=== PATIENT | female | born 1940 ===

== ENCOUNTER 2024-11-02 08:30 | Day surgery (SDC) | payer OTHER ==
[~2024-11-02] VITALS: Ht 158 cm; Wt 65.0 kg
[2024-11-02] MEDS ORDERED: Lactated Ringer's 1,000 ML IV SCH (09:40)
[2024-11-02] MEDS ORDERED: ESCI20 PO (09:45)
[2024-11-02] MEDS ORDERED: DILTIAZEM 24HR120 M4 PO (09:45)
[2024-11-02] MEDS ORDERED: TEMAZEPAM1511 PO (09:45)
[2024-11-02] MEDS ORDERED: Aspir 8181 MG PO (09:46)
[2024-11-02 09:56] VITALS: BP 169/79
--- NOTE | 2024-11-02 10:03 | NUR ---
History, Chart, Medications and Allergies reviewed before start of procedure. Pre-Op teaching done. Pt verbalizes understanding. Patient confirms NPO status and agrees with scheduled surgery. Patient States Post-Procedure ride home has been arranged.
[2024-11-02] MEDS ORDERED: propofoL 20 ML IV ONE (10:55)
--- NOTE | 2024-11-02 11:15 | NUR ---
11/02/24 1115 Bettie Gunderson INTO ENDO 1 @1106- History, Chart, Medications and Allergies reviewed before start of procedure.MONITOR INTACT WITH CONTINUOUS PULSE OXIMETRY, CONTINUOUS END TITAL CO2, 3-LEAD EKG AND INTERMITTENT BLOOD PRESSURE.3-LEAD EKG REVIEWED WITH PHYSICIAN PRIOR TO START OF PROCEDURE.O2 VIA POM INTACT THROUGHOUT SEDATION/PROCEDURE.Bite Block Placed.ERIC RAMSAY PROVIDING MAC-SEE ANESTHESIA RECORD.
[2024-11-02 11:25] VITALS: BP 153/79
--- NOTE | 2024-11-02 11:27 | NUR ---
REPORT RECEIVED FROM MICHAELLE MAURER AND ERIC JIMENEZ. VSS. PT ON RA. PT A&OX4. PT ABLE TO REPOSITION SELF IN BED. PT REQUESTING PO FLUIDS AND TOLERATING THEM WELL. PT DENIES PAIN, NAUSEA OR OTHER DISCOMFORTS.
[2024-11-02 11:40] VITALS: BP 178/90
--- NOTE | 2024-11-02 11:49 | NUR ---
Patient up to Ambulate independently. Gait steady. VSS AND CONSISTENT WITH PT BASELINE. PT HAS NO COMPLAINTS AND VERBALIZES READINESS TO GO HOME. Discharge instructions reviewed with patient. Patient verbalizes understanding. Copy given to patient to take home. PRESCRIPTION FOR PROTONIX CALLED IN BY THIS RN PER DR EDGAR. Patient States Post-Procedure ride home has been arranged. Discharged via wheelchair to private car for ride home. PT BELONGINGS RETURNED TO PT.
== END 2024-11-02 11:55 | disposition home or self-care (01) ==
LOC: ORSCMMR 08:30 → ORD 08:30 → ORSCMMR 08:33 → ORD 10:00 → ORSCMMR 11:55
PROVIDERS: Internal Medicine Gastroenterology
PROC: 0DB98ZX Excision of Duodenum, Via Natural or Artificial Opening Endoscopic, Diagnostic (ICD-10-PCS; principal; 2024-11-02 10:00)
PROC: 0DB68ZX Excision of Stomach, Via Natural or Artificial Opening Endoscopic, Diagnostic (ICD-10-PCS; principal; 2024-11-02 10:00)
DX: K92.1 Melena (principal); D64.9 Anemia, unspecified; K44.9 Diaphragmatic hernia without obstruction or gangrene; Z90.49 Acquired absence of other specified parts of digestive tract; I48.91 Unspecified atrial fibrillation; F32.A Depression, unspecified; K21.9 Gastro-esophageal reflux disease without esophagitis; Z79.82 Long term (current) use of aspirin; Z79.899 Other long term (current) drug therapy
CPT/HCPCS: 88305; 88342; J2704; J7120